=== PATIENT | male | born 1980 | race Two or more races ===

== ENCOUNTER 2018-11-07 18:11 | Emergency (ER) | payer MEDICAID ==
[~2018-11-07] VITALS: Ht 180.3 cm; Wt 73.0 kg
[2018-11-07] MEDS ORDERED: MORPHINE SULFATE 4 MG/1 ML DISP.SYRIN ONE (18:39)
[2018-11-07] MEDS ORDERED: ONDANSETRON ODT 4 MG TAB.RAPDIS ONE (18:39)
[2018-11-07] MEDS ORDERED: ONDANSETRON ODT 4 MG TAB.RAPDIS SL ONE (18:45)
[2018-11-07] MEDS ORDERED: MORPHINE SULFATE 4 MG/1 ML DISP.SYRIN IM ONE (18:45)
[2018-11-07] MEDS ORDERED: IBUPROFEN 800 MG TABLET PO ONE (19:00)
[2018-11-07] MEDS ORDERED: IBUPROFEN 800 MG TABLET ONE (19:00)
--- NOTE | 2018-11-07 19:20 | NUR ---
Assumed care of patient. No acute distress. VSS. Will continue to monitor. Xray at bedside
--- NOTE | 2018-11-07 20:06 | NUR ---
Patient discharged to home in stable conditon. Written and verbal after care instructions given. Patient verbalizes understanding of instructions. Ambulated from ER with stable gait using crutches. Gait training complete
--- NOTE | 2018-11-07 20:07 | NUR ---
All belongings with patient.
[2018-11-07 20:08] VITALS: BP 127/63
== END 2018-11-07 20:09 | disposition home or self-care (01) ==
LOC: ER 18:11
DX: S83.015A Lateral dislocation of left patella, initial encounter (principal); Z88.2 Allergy status to sulfonamides; X58.XXXA Exposure to other specified factors, initial encounter; Y93.71 Activity, boxing; Y92.89 Other specified places as the place of occurrence of the external cause; Y99.8 Other external cause status
CPT/HCPCS: 27560; 73564; 99284; J2270; A4663; Q0162